=== PATIENT | female | born 1960 | race Caucasian/White ===

== ENCOUNTER → 2018-02-14 10:23 | Outpatient (CLI) | payer OTHER, SELFPAY ==
--- NOTE | 2018-02-14 10:27 | CI_ITS ---
Cerebrovascular Exam Indications: 780.4 Vertigo. IMPRESSIONS 1. The bilateral vertebral arteries are patent with normal antegrade flow. 2. Study suggests less than 20% stenosis involving the right internal carotid artery and the left internal carotid artery. 3. Difficult exam. Carotid duplex study. Complete study and Doppler flow study including spectral analysis, color and dhillon scale imaging. Height: Height: 170.2cm. Height: 67in. Weight: Weight: 91.2kg. Weight: 200.6lb. Body mass index: BMI: 31.5kg/m^2. Body surface area: BSA: 2.11m^2. Location: Vascular laboratory. Patient status: Outpatient. Tables: Arterial flow: + +--------+--------+ Location V sys V ed + +--------+--------+ Right CCA - proximal 76.2cm/s 22cm/s + +--------+--------+ Right CCA - distal 94.3cm/s 29.1cm/s + +--------+--------+ Right ECA 97.4cm/s -------- + +--------+--------+ Right ICA - proximal 75cm/s 15.4cm/s + +--------+--------+ Right ICA - mid 70.6cm/s 27cm/s + +--------+--------+ Right ICA - distal 65.1cm/s 24.2cm/s + +--------+--------+ Right vertebral 61.3cm/s -------- + +--------+--------+ Left CCA - proximal 93.2cm/s 12.1cm/s + +--------+--------+ Left CCA - distal 71.7cm/s 18.2cm/s + +--------+--------+ Left ECA 82.7cm/s -------- + +--------+--------+ Left ICA - proximal 71.1cm/s 23.7cm/s + +--------+--------+ Left ICA - mid 102cm/s 33.6cm/s + +--------+--------+ Left ICA - distal 86cm/s 33.6cm/s + +--------+--------+ Left vertebral 34.2cm/s -------- + +--------+--------+ Velocity ratios: + + + + + + Right, V sys Right, V ed Left, V sys Left, V ed + + + + + + Max ICA/dist CCA 0.8 0.93 1.42 1.85 + + + + + + (Report amended ) Electronically signed by: Sabino Sierra [id number]
== END ==
PROVIDERS: Family Provider Nurse Practitioner Family; PCP Nurse Practitioner Family; Visit Provider Nurse Practitioner Family
DX: R47.81 Slurred speech (principal)
CPT/HCPCS: 93880

== ENCOUNTER → 2018-06-20 09:59 | Outpatient (CLI) | payer OTHER, SELFPAY ==
--- NOTE | 2018-06-20 10:01 | MM_ITS ---
MM Dig screening mamm BI w/CAD CAD Screening COMPARISON: Digital mammograms with CAD 01/09/2016 INDICATION: There is no personal or family history of breast cancer, the referring physician felt a possible lump left breast and a marker was placed on the breast at this location. TECHNIQUE: Standard CC and MLO images were obtained. R2 CAD reviewed. FINDINGS: Scattered fibroglandular densities are seen throughout both breasts. A marker is only seen on MLO projection of the left breast and there is no underlying abnormality noted. An additional MLO left breast cone down to the anterior portion of breast was obtained showing no suspicious abnormality. There is some slight inward retraction of the nipple right breast when compared to the previous exam. There is questionable architectural distortion just deep to the nipple right breast and recommend the patient return for spot compression views in MLO and CC projection and ultrasound may be necessary as well. There are couple benign-appearing calcination is right breast. IMPRESSION: Fibrofatty parenchyma with possible architectural distortion right breast BI-RADS Category: 0 Need Additional Imaging Evaluation RECOMMENDED FOLLOW-UP: IMM - IMMEDIATE FOLLOW-UP RECOMMENDED (A letter has been sent to the patient regarding results of the study.)
--- NOTE | 2018-06-20 10:02 | XR_ITS ---
XR foot RT min 3V HISTORY: ITS.REASON: BILAT FOOT PAIN ORDERING PHYSICIAN: Aurora Wei PATIENT AGE: 58 years COMPARISON: None FINDINGS: No fracture or dislocation. No lytic or blastic change. There is normal mineralization.. There are osteoarthritic changes of the ankle joint with hypertrophic changes of the distal tibia and fibula and the talar neck. No lytic or blastic change. Flexion deformity involves the second digit IMPRESSION: 1. No acute finding. 2. Osteoarthritic change of the ankle 3. Flexion deformity second digit
--- NOTE | 2018-06-20 10:02 | XR_ITS ---
XR foot LT min 3V HISTORY: ITS.REASON: BILAT FOOT PAIN ORDERING PHYSICIAN: Aurora Wei PATIENT AGE: 58 years COMPARISON: None FINDINGS: No fracture or dislocation. No lytic or blastic change. There is normal mineralization.. The joint spaces are well-preserved. No significant degenerative/arthritic changes. No erosive changes evident. IMPRESSION: Negative, no acute finding
[2018-06-20 12:21] LABS: Basophils # 0.1 K/mm3 (0-0.2); Basophils % 0.7 % (0.1-2.0); Eosinophils # 0.5 K/mm3 (0.0-0.4); Eosinophils % 6.2 % (0.1-12.0); Hematocrit 36.8 % (37.0-47.0); Hemoglobin 11.7 g/dL (12.2-16.2); Lymphocytes # 2.7 K/mm3 (0.7-4.5); Lymphocytes % 33.7 K/mm3 (10-50); Mean Corpuscular HGB Conc 31.7 g/dL (31.8-35.4); Mean Corpuscular Hemoglobin 32.4 pg (27.0-31.2); Mean Corpuscular Volume 102.4 fl (81-99); Monocytes # 0.5 K/mm3 (0.1-1.0); Monocytes % 5.7 % (1.7-9.3); Neutrophils # 4.3 K/mm3 (1.8-7.8); Neutrophils % 53.7 % (37.0-80.0); Platelet Count 321 K/mm3 (142-424); Red Blood Count 3.59 M/mm3 (4.20-5.40); Red Cell Distribution Width 13.9 % (11.5-17.5)
[2018-06-20 13:17] LABS: Alanine Aminotransferase 25 U/L (12-78); Albumin Level 3.7 gm/dL (3.4-5.0); Albumin/Globulin Ratio 1.1 (1.1-1.8); Alkaline Phosphatase 119 U/L (46-116); Anion Gap 12.6 mEq/L (5-15); Aspartate Amino Transferase 19 U/L (15-37); Bilirubin,Total 0.2 mg/dL (0.2-1.0); Blood Urea Nitrogen 14 mg/dL (7-18); Calcium 9.1 mg/dL (8.5-10.1); Carbon Dioxide 30 mmol/L (21.0-32.0); Chloride 103 mmol/L (98-107); Chol/HDL Ratio 2.4 (1-3.5); Cholesterol 159 mg/dL (140-200); Creatinine,Serum 0.75 mg/dL (0.55-1.02); Estimated Glomerular Filt Rate 80 ml/min (>60); GFR (African American) 96 ML/MIN (>60); Globulin 3.4 gm/dl (1.3-3.2); Glucose 87 mg/dL (74-106); HDL Cholesterol 66 mg/dL (29-89); LDL Cholesterol 79 mg/dL (0-130); Potassium 4.6 mmoL/L (3.5-5.1); Sodium 141 mmol/L (136-145); Thyroid Stimulating Hormone 3.22 uIU/ml (0.358-3.740); Total Protein,Serum 7.1 gm/dL (6.4-8.2); Triglycerides 68 mg/dL (30-200); VLDL Cholesterol 14 mg/dL (0-40)
[2018-06-21 10:21] LABS: Vitamin B12 412 pg/mL (232-1245)
== END ==
PROVIDERS: PCP Nurse Practitioner Family; Visit Provider Nurse Practitioner Family
DX: Z12.31 Encounter for screening mammogram for malignant neoplasm of breast (principal); E53.8 Deficiency of other specified B group vitamins; I10 Essential (primary) hypertension; R60.0 Localized edema; E78.2 Mixed hyperlipidemia; F32.1 Major depressive disorder, single episode, moderate
CPT/HCPCS: 36415; 73630; 77067; 80053; 80061; 82607; 84443; 85025

== ENCOUNTER → 2018-07-18 14:47 | Outpatient (CLI) | payer OTHER, SELFPAY ==
--- NOTE | 2018-07-18 | MM_ITS ---
MM Dig mamm DX unilat RT CAD, US breast RT complete INDICATION: Follow-up abnormal mammogram ORDERING PHYSICIAN: Aurora Wei PATIENT AGE: 58 years COMPARISON: 06/20/2018 TECHNIQUE: Spot compression views FINDINGS: The asymmetric density in the subareolar region on the right does appear to compress out as fibroglandular tissue. No architectural distortion identified on the spot compression views Right breast ultrasound: No cystic or solid lesions evident. Nodes are present in the axilla IMPRESSION: Asymmetric density likely related to fibroglandular tissue. No convincing evidence of malignancy BI-RADS Category: 3 Probably Benign Finding Short Term Follow-up RECOMMENDED FOLLOW-UP: 6M - 6 MONTH FOLLOW-UP (A letter has been sent to the patient regarding results of the study.)
== END ==
PROVIDERS: PCP Nurse Practitioner Family; Visit Provider Nurse Practitioner Family
DX: N63.10 Unspecified lump in the right breast, unspecified quadrant (principal)
CPT/HCPCS: 76641; 77065

== ENCOUNTER 2019-02-25 01:10 | Observation (INO) ==
[2019-02-25 01:36] LABS: Microscopic, Urine URINE MICROSCOPIC (MICROSCOPIC)
[2019-02-25 01:39] LABS: Appearance,Urine CLEAR (Clear); Basophils # 0.1 K/mm3 (0-0.2); Basophils % 0.4 % (0.1-2.0); Bilirubin,Urine Negative (Negative); Blood, Urine Negative (Negative); Color,Urine YELLOW (Yellow); Eosinophils # 0.7 K/mm3 (0.0-0.4); Eosinophils % 4.8 % (0.1-12.0); Glucose,Urine (UA) Negative (Negative); Hematocrit 38.9 % (37.0-47.0); Hemoglobin 12.2 g/dL (12.2-16.2); Ketones,Urine Negative (Negative); Leukocyte Esterase,Urine Negative (Negative); Lymphocytes % 21.2 % (10-50); Mean Corpuscular HGB Conc 31.3 g/dL (31.8-35.4); Mean Corpuscular Volume 102.7 fl (81-99); Monocytes # 0.7 K/mm3 (0.1-1.0); Monocytes % 4.8 % (1.7-9.3); Neutrophils # 9.7 K/mm3 (1.8-7.8); Neutrophils % 68.7 % (37.0-80.0); Platelet Count 362 K/mm3 (142-424); Protein,Urine Negative (Negative); Red Blood Count 3.79 M/mm3 (4.20-5.40); Urobilinogen,Urine 0.2 EU/dl (0.2); White Blood Count 14.1 K/mm3 (4.8-10.8)
[2019-02-25 01:51] LABS: Alanine Aminotransferase 31 U/L (12-78); Albumin Level 3.5 gm/dL (3.4-5.0); Albumin/Globulin Ratio 0.9 (1.1-1.8); Alkaline Phosphatase 113 U/L (46-116); Amylase 46 U/L (25-115); Anion Gap 13.9 mEq/L (5-15); Aspartate Amino Transferase 23 U/L (15-37); Bilirubin,Total 0.2 mg/dL (0.2-1.0); Blood Urea Nitrogen 19 mg/dL (7-18); C-Reactive Protein < 0.2 mg/L (0.0-0.9); Carbon Dioxide 26 mmol/L (21.0-32.0); Chloride 105 mmol/L (98-107); Globulin 3.8 gm/dl (1.3-3.2); Glucose 122 mg/dL (74-106); Sodium 141 mmol/L (136-145); Total Protein,Serum 7.3 gm/dL (6.4-8.2)
--- NOTE | 2019-02-25 01:56 | Emergency Department Note ---
ED Disposition Clinical Impression: Cholecystitis, Tobacco use, Hx of CABG HTN (hypertension) Qualifiers: Hypertension type: essential hypertension Qualified Code(s): I10 - Essential (primary) hypertension Disposition: Admitted as Observation Condition on Discharge: Fair Instructions: DI for Acute Abdomen Referrals: Aurora Wei APRN [Primary Care Provider] - - Critical Care Critical Care Time: No Attestation: On 02/25/19, the high probability of a clinically significant, sudden or life threatening deterioration of the following system(s) required my full and direct attention, intervention and personal management. The time I documented below is in addition to time spent performing reported procedures but includes the following listed in this critical care notation. Medical Decision Making - Medical Records Medical records reviewed: Yes: I reviewed the patient's medical records. - Nadeem Inquiry Pt receiving controlled substance: No Vital Signs: 02/25/19 01:17 Temperature 98.0 F Temperature Source Oral Pulse Rate [Right Radial] 52 L Respiratory Rate 18 Blood Pressure [Right Arm] 152/118 H Blood Pressure Mean [Right Arm] 129 02 Sat by Pulse Oximetry 100 - Lab Data Lab results reviewed: Yes: I reviewed the patient's lab results. Lab Results 02/25/19 01:20: Urine Color Yellow, Urine Appearance Clear, Urine pH 7.0, Ur Specific [place] 1.020, Urine Protein Negative, Urine Glucose (UA) Negative, Urine Ketones Negative, Urine Blood Negative, Urine Nitrate Negative, Urine Bilirubin Negative, Urine Urobilinogen 0.2, Ur Leukocyte Esterase Negative, Urine WBC Occasional, Ur Squamous Epith Cells 3-5, Urine Bacteria Trace 02/25/19 01:20: WBC 14.1 H, RBC 3.79 L, Hgb 12.2, Hct 38.9, MCV 102.7 H, MCH 32.1 H, MCHC 31.3 L, RDW 13.0, Plt Count 362, MPV 8.0, Neut % (Auto) 68.7, Lymph % (Auto) 21.2, [place] % (Auto) 4.8, Eos % (Auto) 4.8, Baso % (Auto) 0.4, Neut # (Auto) 9.7 H, Lymph # (Auto) 3.0, [place] # (Auto) 0.7, Eos # (Auto) 0.7 H, Baso # (Auto) 0.1, ESR 36 H 02/25/19 01:20: Sodium 141, Potassium 3.9, Chloride 105, Carbon Dioxide 26, Anion Gap 13.9, BUN 19 H, Creatinine 0.87, Estimated Creat Clear 95, Estimated GFR 67, Est GFR ( Amer) 81, Glucose 122 H, Calcium 9.0, Total Bilirubin 0.2, AST 23, ALT 31, Alkaline Phosphatase 113, C-Reactive Protein < 0.2, Total Protein 7.3, Albumin 3.5, Globulin 3.8 H, Albumin/Globulin Ratio 0.9 L, Amylase 46, Lipase 226 02/25/19 01:20: Lactate 0.9 Result diagrams: 02/25/19 01:20 02/25/19 01:20 Orders (Tests/Meds): ED MEDICATIONS Generic Name Dose Route Start Last Admin Trade Name Freq PRN Reason Stop Dose Admin Sodium Chloride 1,000 mls @ 999 mls/hr 02/25/19 01:30 02/25/19 01:31 Sod Chlor 0.9% 1000ml Bag IV 02/25/19 02:30 999 mls/hr .Q1H1M NEVIN Administration Discontinued Medications Generic Name Dose Route Start Last Admin Trade Name Freq PRN Reason Stop Dose Admin Belladonna Alkaloids 60 ml 02/25/19 01:24 02/25/19 01:31 Gi Cocktail 60ml Udc PO 02/25/19 01:25 60 ml ONCE ONE Administration Famotidine 20 mg 02/25/19 01:23 02/25/19 01:31 Pepcid 20mg/2ml Vial IV 02/25/19 01:24 20 mg ONCE ONE Administration Ioversol 75 ml 02/25/19 02:17 02/25/19 02:18 Rad-Optiray 350 100ml Vial IV 02/25/19 02:18 75 ml ONCE ONE Administration Protocol Ketorolac Tromethamine 30 mg 02/25/19 01:24 02/25/19 01:31 Toradol 30mg/Ml Vial IV 02/25/19 01:25 30 mg ONCE ONE Administration Metoclopramide HCl 10 mg 02/25/19 01:23 02/25/19 01:31 Reglan 10mg/2ml Vial IVP 02/25/19 01:24 10 mg ONCE ONE Administration Ondansetron HCl 4 mg 02/25/19 01:23 02/25/19 01:31 Zofran 4mg/2ml Vial IV 02/25/19 01:24 4 mg ONCE ONE Administration Sodium Chloride 10 ml 02/25/19 02:17 02/25/19 02:18 Rad-Saline Flush 10ml Syringe IV 02/25/19 02:18 10 ml ONCE ONE Administration ORDERS Category Date Time Status CT abdomen pelvis w con Stat Cat Scan 02/25/19 01:23 Taken Blood Culture Stat Micro 02/25/19 01:30 Received - CT Data CT Scan: Abdomen, Pelvis Time Received: 02:[address] Reviewed: Yes: I have viewed the radiologist's interpretation Preliminary Findings: Abnormal (abn ballbladder) - Physician Consults Physician Consulted: nicole Reason -: Admission Nausea/Vomiting/Diarrhea HPI - General Chief complaint: Abdominal Pain Stated complaint: stomach pain Time Seen by Provider: 02/25/19 01:35 Mode of Arrival: Ambulatory Source of Information: Patient, Medical Record Limitations: No Limitations Description of Symptoms (Recalled from ER Triage Doc. by RN): abdominal pain that started this afternoon. pt states she has had galbladder problems in the past. pt states she is nauseous. denies diarrhea. pt states the pain radiates all around both sides of her abdomen. - History of Present Illness HPI Narrative: progressive rt upper abd pain today with hx of possible gallbladder disease - nausea MD complaint: nausea, abdominal pain Onset (ago): day(s) Associated Abdominal Pain: Yes Location of pain: RUQ Severity: moderate Consistency: intermittent Associated symptoms: denies other symptoms - Related Data Allergies Allergy/AdvReac Type Severity Reaction Status Date / Time No Known Allergies Allergy Verified 02/25/19 01:22 [facility] History - Hepatitis A Screen Drug use history?: No High risk sexual behaviors?: No History of sexually transmitted infection?: No Currently employed?: No Childcare worker?: No Do you have indoor plumbing?: Yes Do you have electricity?: Yes Attestation statement:: This patient has been screened for Hepatitis A risk factors. I have reviewed the patient's past medical history: Yes Medical History: Denies:: Cancer, Diabetes Mellitus Type 1, Diabetes Mellitus Type 2, MRSA Amputation: No - Social History Smoking Status: Current every day smoker # Packs/Day (cigarettes): 1 Alcohol Intake: never Occupational Status: disabled - Psychiatric History Expresses thoughts of harming self/others: None Suicide Plan Description: No Plan ROS Obtained: Yes All systems reviewed & no additional complaints - Constitutional Constitutional: Denies fever(s) - Eyes Eyes: Denies change in vision - ENT Ears, Nose, Mouth, and Throat: Denies sore throat - Cardiovascular Cardiovascular: Denies chest pain - Respiratory Respiratory: No cough - Gastrointestinal Gastrointestingal: Reports: as per HPI, abdominal pain, nausea, vomiting. Denies: diarrhea - Genitourinary Female Genitourinary: Denies hematuria - Musculoskeletal Musculoskeletal: Denies joint swelling - Integumentary/Breasts Skin/Breast: Denies rash - Neurologic Neurologic: Denies seizure-like activity Physical Exam - General General appearance: alert, in no apparent distress - Head Head exam: normocephalic - Eye Eye exam: Present: PERRL, EOMI. Absent: scleral icterus - ENT ENT exam: Present: mucous membranes dry - Neck Neck exam: Present: trachea midline - Respiratory Respiratory exam: Present: normal lung sounds bilaterally. Absent: respiratory distress - Cardiovascular Cardiovascular exam: Present: regular rate, systolic murmur, +S4 - Abdominal Exam Abdominal exam: Present: soft, tenderness, Greenwood's sign. Absent: guarding, rebound, rigidity Abdominal tenderness: Present: RUQ, moderate - Extremities Exam Extremities exam: Absent: calf tenderness - Neurological Exam Neurological exam: Present: alert, oriented X3, CN II-XII intact - Psychiatric Psychiatric exam: Present: normal affect - Skin Skin exam: Absent: rash
[2019-02-25 02:19] LABS: Erythrocyte Sedimentation Rate 36 mm/hr (0-30)
[2019-02-25 02:22] LABS: Bacteria,Urine Trace /lpf; WBC,Urine Occasional #/hpf (0-3)
--- NOTE | 2019-02-25 07:20 | Pharmacy Consult Notes ---
[facility] Pharmacy VTE Monitoring - Patient Demographics Admission date: 02/24/19 Report Date: 02/25/19 Time: 07:20 Allergies/Adverse Reactions: Patient Allergies No Known Allergies Allergy (Verified 02/25/19 01:22) Height: 1.68 m Weight: 82.157 kg Patient Problems: Current Active Problems (Updated 02/25/19 @ 02:57 by Denis Gallo MD) Cholecystitis (Acute) Tobacco use (Acute) HTN (hypertension) (Acute) Hx of CABG (Acute) - VTE Risk Labs: VTE Related Lab Results Hgb 12.2 g/dL (12.2-16.2) 02/25/19 01:20 Hct 38.9 % (37.0-47.0) 02/25/19 01:20 Plt Count 362 K/mm3 (142-424) 02/25/19 01:20 BUN 19 mg/dL (7-18) H 02/25/19 01:20 Creatinine 0.87 mg/dL (0.55-1.02) 02/25/19 01:20 Estimated Creat Clear 95 mL/min (50-200) 02/25/19 01:20 Was VTE Risk Assessment Performed: Yes VTE Score: 5 VTE Risk Level: Low Risk Clinical Trial Participant: No - Prophylaxis VTE Prophylaxis Ordered?: Yes Types of VTE Prophylaxis: TEDS Knee High Location of Applied Device: Refused
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
[2019-02-25 09:50] LABS: Eosinophils # 0.3 K/mm3 (0.0-0.4); Eosinophils % 2.3 % (0.1-12.0); Mean Platelet Volume 9.6 fl (7.4-10.4); Monocytes # 0.6 K/mm3 (0.1-1.0)
[2019-02-25 09:53] LABS: Basophils # 0.1 K/mm3 (0-0.2); Basophils % 0.4 % (0.1-2.0); Hematocrit 36.6 % (37.0-47.0); Lymphocytes # 3.4 K/mm3 (0.7-4.5); Lymphocytes % 28.4 % (10-50); Mean Corpuscular HGB Conc 30.6 g/dL (31.8-35.4); Mean Corpuscular Volume 106.1 fl (81-99); Neutrophils # 7.6 K/mm3 (1.8-7.8); Neutrophils % 63.9 % (37.0-80.0); Platelet Count 328 K/mm3 (142-424); Red Blood Count 3.45 M/mm3 (4.20-5.40); Red Cell Distribution Width 13.4 % (11.5-17.5); White Blood Count 11.8 K/mm3 (4.8-10.8)
[2019-02-25 09:59] LABS: Hemoglobin 11.2 g/dL (12.2-16.2)
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
[2019-02-25 15:34] VITALS: BP 122/58
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
--- NOTE | 2019-02-25 20:40 | Cardiology Report ---
PROCEDURE: 2-D M-mode and color Doppler study INDICATIONS FOR THE TEST: Chest pain COPD Heart Murmur Tobacco SmokingX Palpitations Fatigue Syncope Edema HypertensionXDiabetes Mellitus Rheumatic Fever SOB HA Obesity HyperlipidemiaX Family History HD Additional History CAD,CABG PATIENT INFORMATION HEIGHT: 66 WEIGHT:181 GENDER: Female B/P:1876/81 2-D/M-MODE INTERPRETATION: 2-D MEASUREMENTS OBSERVED VALUES IN CMS Right Ventricular Dimension (RVDd) 2.6 Interventricular Septum (Thickness)(IVsd) .9 Left Ventricular Internal Dimensions(LVIDd) 5.6 Left Ventricular Posterior Wall (Thickness)(LVPWd) 1.0 Aortic Root 3.5 Aortic Cusp Separation 1.8 Left Atrial Dimensions (LAD) 4.0 2D 1. Left atrium is mildly enlarged, left ventricle is normal size, mild concentric left ventricular hypertrophy, visually estimated ejection fraction 55% with no regional wall motion abnormality. 2. The right atrium and right ventricle are mildly enlarged with normal contractility. 3. The aortic valve is minimally thickened and calcified. 4. The mitral and tricuspid valve leaflets are minimally thickened. 5. The pulmonic valve is poorly visualized. 6. No significant pericardial effusion noted. DOPPLER INTERROGATION: Doppler interrogation of the aortic, mitral and tricuspid valvular presence of mild mitral and tricuspid regurgitation, calculated right ventricular systolic pressure is 46 mmHg consistent with moderate pulmonary hypertension, grade 1 diastolic dysfunction seen with tissue Doppler evidence of raised left atrial pressure, inferior vena cava is not well visualized. CONCLUSION: 1. Biatrial enlargement, normal left ventricular size, mild concentric left ventricular hypertrophy, visually estimated ejection fraction 55% with no regional wall motion abnormality, grade 1 diastolic dysfunction seen with tissue Doppler evidence of raised left atrial pressure. 2. Mildly enlarged right ventricle with normal contractility. 3. Mild mitral and tricuspid regurgitation, calculated right ventricular systolic pressure 46 mmHg consistent with moderate pulmonary hypertension, inferior vena cava is not well visualized. 4. No significant pericardial effusion noted.
== END 2019-02-25 18:16 | disposition home or self-care (01) ==
LOC: 2ND 01:10 → ER 01:10 → 2ND 03:33
PROVIDERS: ADMIT Internal Medicine Adolescent Medicine; ATTEND Internal Medicine Adolescent Medicine
CPT/HCPCS: 36415; 74177; 76705; 80053; 81001; 82150; 83605; 83690; 85025; 85651; 86140; 87040; 93005; 93306; 96365; 96367; 96375; 99284; G0378; J2405; J2543; Q9967

== ENCOUNTER → 2019-03-02 11:08 | Outpatient (CLI) | payer OTHER, SELFPAY ==
[2019-03-02 11:43] LABS: Basophils # 0.1 K/mm3 (0-0.2); Basophils % 0.8 % (0.1-2.0); Eosinophils # 0.9 K/mm3 (0.0-0.4); Eosinophils % 7.6 % (0.1-12.0); Hemoglobin 11.8 g/dL (12.2-16.2); Lymphocytes # 2.8 K/mm3 (0.7-4.5); Lymphocytes % 24.2 % (10-50); Mean Corpuscular HGB Conc 31.9 g/dL (31.8-35.4); Mean Corpuscular Hemoglobin 32.6 pg (27.0-31.2); Mean Corpuscular Volume 102.3 fl (81-99); Mean Platelet Volume 8.4 fl (7.4-10.4); Monocytes # 0.6 K/mm3 (0.1-1.0); Monocytes % 5.6 % (1.7-9.3); Neutrophils # 7.1 K/mm3 (1.8-7.8); Neutrophils % 61.8 % (37.0-80.0); Platelet Count 349 K/mm3 (142-424); Red Blood Count 3.62 M/mm3 (4.20-5.40); Red Cell Distribution Width 13.1 % (11.5-17.5); White Blood Count 11.5 K/mm3 (4.8-10.8)
[2019-03-02 13:16] LABS: Alanine Aminotransferase 28 U/L (12-78); Albumin Level 3.6 gm/dL (3.4-5.0); Albumin/Globulin Ratio 1.1 (1.1-1.8); Alkaline Phosphatase 95 U/L (46-116); Anion Gap 13.4 mEq/L (5-15); Aspartate Amino Transferase 17 U/L (15-37); Bilirubin,Total 0.2 mg/dL (0.2-1.0); Blood Urea Nitrogen 19 mg/dL (7-18); Calcium 8.7 mg/dL (8.5-10.1); Carbon Dioxide 27 mmol/L (21.0-32.0); Chloride 102 mmol/L (98-107); Creatinine,Serum 0.82 mg/dL (0.55-1.02); Estimated Glomerular Filt Rate 72 ml/min (>60); GFR (African American) 87 ML/MIN (>60); Globulin 3.4 gm/dl (1.3-3.2); Glucose 91 mg/dL (74-106); Potassium 4.4 mmoL/L (3.5-5.1); Sodium 138 mmol/L (136-145)
== END ==
PROVIDERS: Visit Provider Surgery
DX: K82.9 Disease of gallbladder, unspecified (principal)
CPT/HCPCS: 36415; 80053; 85025

== ENCOUNTER → 2019-03-11 10:15 | Outpatient (CLI) | payer OTHER, SELFPAY ==
--- NOTE | 2019-03-11 10:27 | XR_ITS ---
XR knee LT 3V HISTORY: ITS.REASON: LT KNEE PAIN ORDERING PHYSICIAN: Aurora Wei APRN PATIENT AGE: 58 years COMPARISON: None FINDINGS: There are mild osteoarthritic changes of the medial compartment and patellofemoral joint. No fracture or dislocation. No lytic or blastic change. IMPRESSION: Mild osteoarthritis
== END ==
PROVIDERS: PCP Nurse Practitioner Family; Visit Provider Nurse Practitioner Family
DX: M25.562 Pain in left knee (principal)
CPT/HCPCS: 73562

== ENCOUNTER → 2021-06-06 15:05 | Outpatient (CLI) | payer OTHER, SELFPAY ==
--- NOTE | 2021-06-06 | CA_ITS ---
APPROVED REPORT EXAM: Comprehensive 2D, Doppler, and color-flow Echocardiogram Mineralogy Teacher: Sera Rendon RT(R) Ht: 5 ft 6 in Wt: 185lbs BSA: 1.93 BP: 125/68 mmHg Indications: SOB, CAD, obesity, smoker, HTN, hx CABG 2D Dimensions LVOT 1.89 cm (M/F) 1.5-2.5 LVEF (Paige's) 51.60 % F: 54 - 74 LV Volume 125.50 mL F: 46 - 106 LV Volume Index 65.02 mL/m2 F: 29 - 61 LA Volume 52.80 mL LA Volume Index 27.35 mL/m2 (M/F) 16-34 M-Mode Dimensions RVDd 2.46 cm (0.9-2.6) LA Diam 4.45 cm (1.9-4.0) LVDd 5.71 cm (3.5-5.7) Ao Diam 3.05 cm (2.0-3.7) LVDs 4.57 cm (3.5-5.7) IVSd 0.89 cm (0.6-1.1) PWd 0.86 cm (0.6-1.1) EF (Teich) 40.30% FS 20.00% EDV (Teich) 160.70 mL ESV (Teich) 95.90 mL LV Diastology E Decel Time 170.00 (160-240 msec) E/A Ratio 0.8 MED E' 7.80 (< 7 cm/sec) E'/MED E' Ratio 10.63 (>14) LAT E' 10.50 (<10 cm/sec) E/LAT E' Ratio 7.90 (>14) Mitral Valve MV E Max Denny. 83.00 (40-130 cm/s) MV A Velocity 106.00 (40-130 cm/s) E/A Ratio 0.78 MV Decel. Time 170.00 (160-240 ms) MV PHT 50.00 ms Tricuspid Valve TR P. Velocity 302.00 cm/s RAP Estimate 10.00 mmHg RVSP 46.40 mmHg Left Ventricle Left atrium is mildly enlarged, left ventricle is normal size, mild concentric left ventricular hypertrophy, visually estimated ejection fraction 55% with no regional wall motion abnormality, grade 1 diastolic dysfunction seen without tissue Doppler evidence of raise left atrial pressure. Right Ventricle Right atrium and right ventricle mildly enlarged with normal contractility. Aortic Valve Aortic valve is minimally thickened and fibrosed, there is no aortic stenosis or aortic insufficiency. Mitral Valve Mitral valve is grossly normal, there is mild mitral regurgitation. Tricuspid Valve Tricuspid valve grossly normal, there is mild tricuspid regurgitation, calculated right ventricular systolic pressure is 46 mmHg. Pulmonic Valve Pulmonic valve is poorly visualized. Great Vessels Aortic root is normal size. Inferior vena cava is mildly enlarged with normal inspiratory collapse. Pericardium No significant pericardial effusion noted. Conclusion 1. Mild biatrial enlargement, normal left ventricular size, mild concentric left ventricular hypertrophy, visually estimated ejection fraction 55% with no regional wall motion abnormality, grade 1 diastolic dysfunction seen without tissue Doppler evidence of raise left atrial pressure. 2. Mildly enlarged right ventricle with normal contractility. 3. Mild mitral and tricuspid regurgitation, calculated right ventricular systolic pressure is 46 mmHg. 4. No significant pericardial effusion noted. 5. Inferior vena cava is mildly enlarged with normal inspiratory collapse. Electronically signed by : Rodger Fuentes MD 06/06/2021 19:45:50
== END ==
PROVIDERS: PCP Family Medicine; Visit Provider Family Medicine
DX: R06.02 Shortness of breath (principal); I25.119 Atherosclerotic heart disease of native coronary artery with unspecified angina pectoris
CPT/HCPCS: 93306